=== PATIENT | male | born 1970 | race Two or more races ===

== ENCOUNTER 2023-12-26 07:38 | Emergency (ER) | payer MEDICAID ==
[~2023-12-26] VITALS: Ht 167.6 cm; Wt 94.0 kg
[2023-12-26 07:40] VITALS: TEMP 97.5
[2023-12-26] MEDS: normal saline 1000ml 1,000 ML IV ONE (08:12)
[2023-12-26] MEDS: ketorolac tromethamine 15mg/ml inj. IV ONE (08:12)
[2023-12-26] MEDS: normal saline 1000ML IV soln IVB ONE (08:12)
[2023-12-26 08:16] LABS: BASOPHILS % (AUTO) 0.2 % (0-1); EOSINOPHILS % (AUTO) 0.2 % (0-6); HEMOGLOBIN 15.3 g/dl (14.0-17.9); LYMPHOCYTES # (AUTO) 0.7 X10'3 (1.1-4.8); LYMPHOCYTES % (AUTO) 7.7 % (21-51); MEAN CORPUSCULAR HEMOGLOBIN 32.7 PG (27.0-31.0); MEAN CORPUSCULAR HGB CONC 34.9 g/dL (33.0-36.5); MEAN CORPUSCULAR VOLUME 93.8 FL (78-98); MEAN PLATELET VOLUME 7.5 FL (7.4-10.4); MONOCYTES # (AUTO) 0.3 X10'3 (0-0.9); MONOCYTES % (AUTO) 3.7 % (2-12); NEUTROPHILS # (AUTO) 7.8 X10'3 (1.8-7.7); NEUTROPHILS % (AUTO) 88.2 % (42-75); PLATELET COUNT 315 X10'3 (140-440); RED BLOOD COUNT 4.69 X10'6 (4.70-6.10); RED CELL DISTRIBUTION WIDTH 12.9 % (11.5-14.5); WHITE BLOOD COUNT 8.8 X10'3 (4.5-11.0)
[2023-12-26 08:18] LABS: BILIRUBIN,URINE NEGATIVE (Neg); CLARITY,URINE CLEAR (Clear); COLOR,URINE YELLOW (Yellow); GLUCOSE, URINE 500 mg/dl (Neg); KETONES,URINE NEGATIVE (Neg); LEUKOCYTE ESTERASE ,URINE NEGATIVE (Neg); NITRITES, URINE NEGATIVE (Neg); OCCULT BLOOD,URINE SMALL (Neg); PROTEIN,URINE 30 mg/dl (Neg); UROBILINOGEN,URINE 0.2 E.U/dL (0.2-1.0)
[2023-12-26 08:19] LABS: UA COLLECTION TYPE VOIDED
[2023-12-26 08:25] LABS: BACTERIA,URINE NONE SEEN /HPF (Neg); SQUAMOUS EPITHELIAL CELL,UR FEW /LPF (FEW); WBC,URINE NONE SEEN /HPF (0-4)
[2023-12-26 08:31] LABS: ALANINE AMINOTRANSFERASE 72 U/L (12-78); ALBUMIN 3.9 G/DL (3.4-5.0); ALKALINE PHOSPHATASE 60 IU/L (46-116); ANION GAP 14 (8-16); ASPARTATE AMINO TRANSFERASE 35 U/L (10-37); BILIRUBIN,TOTAL 0.8 MG/DL (0.1-1.0); BLOOD UREA NITROGEN 14 MG/DL (7-18); BUN/CREATININE RATIO 9.6 (10.0-20.0); CALCIUM 8.7 MG/DL (8.5-10.1); CHLORIDE 104 MMOL/L (99-107); CREATININE 1.46 MG/DL (0.60-1.10); GLUCOSE 228 MG/DL (70-104); LIPASE 48 U/L (16-77); POTASSIUM 3.6 MMOL/L (3.5-5.1); SODIUM 137 MMOL/L (135-145); TOTAL CARBON DIOXIDE 18.9 MMOL/L (24-32); TOTAL PROTEIN 7.7 G/DL (6.4-8.2); eCRCL 53 ML/MIN; eGFR 51 ML/MIN
[2023-12-26] MEDS: sildenafil citrate 20mg tablet PO STA (09:40)
[2023-12-26] MEDS: meperidine/PF 25mg/ml syringe IV ONE (09:40)
[2023-12-26 11:35] VITALS: PULSE 66; RESP 18; O2SAT 98
[2023-12-26 11:40] VITALS: BP 134/79
== END 2023-12-26 11:41 | disposition home or self-care (01) ==
LOC: ER 07:39
DX: N13.30 Unspecified hydronephrosis (principal); N23 Unspecified renal colic
CPT/HCPCS: 36415; 74176; 80053; 81001; 83690; 85025; 96361; 96374; 99285; J1885; J7030